=== PATIENT | female | born 1950 | race Caucasian/White ===

== ENCOUNTER 2018-10-18 13:45 | Inpatient (IN) | payer MEDICARE, OTHER ==
[~2018-10-18] VITALS: Ht 165.1 cm; Wt 89.5 kg
[2018-10-18] MEDS ORDERED: DIFLUCAN200 M1 PO (17:50)
[2018-10-18] MEDS ORDERED: ASPIRIN ADULT L81 M3 PO (17:51)
[2018-10-18] MEDS ORDERED: LASIX40 M1 PO (17:51)
[2018-10-18] MEDS ORDERED: NYSTATIN15 GM TP (17:51)
[2018-10-18] MEDS ORDERED: MASON NATURAL2000 IU PO (17:52)
[2018-10-18] MEDS ORDERED: CLOPIDOGREL PO (17:52)
[2018-10-18] MEDS ORDERED: CRESTOR20 MG PO (17:53)
[2018-10-18] MEDS ORDERED: GLIPIZIDE10 M2 PO (17:53)
[2018-10-18] MEDS ORDERED: MAG-OXIDE200 MG PO (17:53)
[2018-10-18] MEDS ORDERED: LOPRESSOR 225 MG/TAB PO (17:54)
[2018-10-18] MEDS ORDERED: AMBIEN CR12.5 MG PO (17:54)
[2018-10-18] MEDS ORDERED: VITAMIN B-121000 MC2 PO (17:55)
[2018-10-18] MEDS ORDERED: VITAMIN D50000 I2 PO (17:56)
[2018-10-18] MEDS ORDERED: GLUCOPHAGE1000 MG PO (17:56)
[2018-10-18] MEDS ORDERED: MYSOLINE50 M1 PO (17:57)
[2018-10-18] MEDS ORDERED: PEPCID 20MG TAB20 MG PO (17:57)
[2018-10-18] MEDS ORDERED: KLONOPIN 1MG1 MG PO (17:57)
[2018-10-18] MEDS ORDERED: COLACE100 M1 PO (17:58)
[2018-10-18] MEDS ORDERED: TYLENOL EXTRA500 M2 PO (17:58)
[2018-10-18] MEDS ORDERED: FERROUS GL325 MG/TA1 PO (17:59)
[2018-10-18] MEDS ORDERED: NEURONTIN300 MG/CAP (18:00)
[2018-10-18] MEDS ORDERED: ASCORBIC ACID PO (18:01)
[2018-10-18] MEDS ORDERED: NOVOLOG 100U100 U/ML SQ (18:01)
[2018-10-18] MEDS ORDERED: MIRALAX17 GM PO (18:01)
[2018-10-18] MEDS ORDERED: ULTRAM50 M1 PO (18:02)
[2018-10-18] MEDS ORDERED: MULTIVITAMIN1 SGL PO (18:02)
[2018-10-18] MEDS ORDERED: TRADJENTA5 MG PO (18:02)
[2018-10-18] MEDS ORDERED: AMLODIPINE BESY10 MG PO (18:03)
[2018-10-18 19:00] VITALS: BP 110/71
[2018-10-18 19:38] VITALS: BP 110/71
[2018-10-19 06:27] VITALS: BP 112/62
[2018-10-19 18:10] VITALS: BP 148/81
[2018-10-20 06:23] VITALS: BP 175/68
[2018-10-20 18:35] VITALS: BP 165/80
[2018-10-21 06:23] VITALS: BP 162/73
[2018-10-21 06:55] LABS: EOS # 0.3 (0.04-0.40); EOS % 3.4 % (1.0-5.0); HEMATOCRIT 31.5 % (37.0-47.0); LYMPH# 2.3 (1.50-4.00); MEAN CELL VOLUME 97 fl (78-100); MEAN CORPUSCULAR HEMOGLOBIN 31 pg (27-31); MEAN CORPUSCULAR HGB CONC 32 g/dL (33-37); MEAN PLATELET VOLUME 8.2 fl (7.4-10.4); MONO # 0.7 (0.20-0.80); NEU # 5.1 (1.40-6.50); RED BLOOD COUNT 3.26 M/mm3 (4.10-5.30); RED CELL DISTRIBUTION WIDTH 14.4 % (11.5-14.5); WHITE BLOOD COUNT 8.4 K/mm3 (4.8-10.8)
[2018-10-21 06:57] LABS: PLATELET COUNT 546 K/mm3 (130-400)
[2018-10-21 07:23] LABS: CALCIUM 8.5 mg/dL (8.4-10.2); POTASSIUM 3.9 mmol/L (3.6-5.0); TOTAL BILIRUBIN 0.4 mg/dL (0.2-1.3); TOTAL PROTEIN 6.1 g/dL (6.3-8.2)
[2018-10-21 14:38] LABS: C-REACTIVE PROTEIN XXX
[2018-10-21 19:33] VITALS: BP 141/43
[2018-10-22 06:26] VITALS: BP 167/73
[2018-10-22 18:35] VITALS: BP 155/74
[2018-10-22 23:55] LABS: URINE APPEARANCE HAZY; URINE BILIRUBIN NEGATIVE (NEGATIVE); URINE BLOOD TRACE (NEGATIVE); URINE COLOR YELLOW; URINE GLUCOSE NEGATIVE (NEGATIVE); URINE KETONE NEGATIVE (NEGATIVE); URINE LEUKOCYTE ESTERASE TRACE (NEGATIVE); URINE NITRATE NEGATIVE (NEGATIVE); URINE PROTEIN(semi-quant) TRACE mg/dL (NEGATIVE); URINE UROBILINOGEN NORMAL (NORMAL)
[2018-10-23 06:16] VITALS: BP 154/72
[2018-10-23 18:23] VITALS: BP 165/93
[2018-10-24 06:18] VITALS: BP 144/95
[2018-10-24 18:34] VITALS: BP 135/88
[2018-10-25 06:20] VITALS: BP 133/65
[2018-10-25 18:33] VITALS: BP 153/72
[2018-10-26 06:20] VITALS: BP 148/69
[2018-10-26 18:37] VITALS: BP 130/69
[2018-10-27 06:15] VITALS: BP 139/64
[2018-10-27 18:00] VITALS: BP 157/83
[2018-10-28 06:21] VITALS: BP 147/75
[2018-10-28 06:49] LABS: BASO # 0.1 (0.02-0.10); EOS # 0.2 (0.04-0.40); EOS % 2.3 % (1.0-5.0); HEMATOCRIT 32.1 % (37.0-47.0); HEMOGLOBIN 10.1 g/dL (12.5-16.0); LYMPH# 2.2 (1.50-4.00); MEAN CELL VOLUME 97 fl (78-100); MEAN CORPUSCULAR HEMOGLOBIN 31 pg (27-31); MEAN CORPUSCULAR HGB CONC 32 g/dL (33-37); MEAN PLATELET VOLUME 8.3 fl (7.4-10.4); MONO # 0.9 (0.20-0.80); PLATELET COUNT 441 K/mm3 (130-400); RED BLOOD COUNT 3.31 M/mm3 (4.10-5.30); RED CELL DISTRIBUTION WIDTH 14.4 % (11.5-14.5); WHITE BLOOD COUNT 8.4 K/mm3 (4.8-10.8)
[2018-10-28 07:10] LABS: ALBUMIN 3.1 g/dL (3.5-5.0); TOTAL BILIRUBIN 0.4 mg/dL (0.2-1.3); TOTAL PROTEIN 6.3 g/dL (6.3-8.2)
[2018-10-28 13:30] LABS: C-REACTIVE PROTEIN XXX
[2018-10-28 18:33] VITALS: BP 118/61
[2018-10-29 06:18] VITALS: BP 133/80
[2018-10-29 18:57] VITALS: BP 148/64
[2018-10-30 06:30] VITALS: BP 152/70
[2018-10-30 18:45] VITALS: BP 156/81
[2018-10-31 06:18] VITALS: BP 149/69
[2018-10-31 18:30] VITALS: BP 151/83
[2018-11-01 06:22] VITALS: BP 164/79
[2018-11-01 18:47] VITALS: BP 134/63
[2018-11-02 06:24] VITALS: BP 143/66
[2018-11-02 17:54] VITALS: BP 153/85
[2018-11-03 06:29] VITALS: BP 142/71
[2018-11-03 18:48] VITALS: BP 146/78
[2018-11-04 06:18] VITALS: BP 154/76
[2018-11-04 07:50] LABS: CALCIUM 9.7 mg/dL (8.4-10.2); POTASSIUM 4.6 mmol/L (3.6-5.0); TOTAL BILIRUBIN 0.3 mg/dL (0.2-1.3); TOTAL PROTEIN 6.2 g/dL (6.3-8.2)
[2018-11-04 08:20] LABS: HEMATOCRIT 30.8 % (37.0-47.0); HEMOGLOBIN 9.8 g/dL (12.5-16.0); MEAN CELL VOLUME 97 fl (78-100); MEAN CORPUSCULAR HEMOGLOBIN 31 pg (27-31); MEAN CORPUSCULAR HGB CONC 32 g/dL (33-37); MEAN PLATELET VOLUME 8.7 fl (7.4-10.4); PLATELET COUNT 357 K/mm3 (130-400); RED BLOOD COUNT 3.18 M/mm3 (4.10-5.30); RED CELL DISTRIBUTION WIDTH 14.7 % (11.5-14.5); WHITE BLOOD COUNT 6.7 K/mm3 (4.8-10.8)
[2018-11-04 09:10] LABS: LYMPHOCYTE 40 % (20-51); MONOCYTE 10 % (3-10); NEUTROPHILS 45 % (42-75)
[2018-11-04 18:39] VITALS: BP 166/78
[2018-11-05 06:25] VITALS: BP 143/55
[2018-11-05 18:55] VITALS: BP 117/64
[2018-11-06 06:27] VITALS: BP 143/74
[2018-11-06 18:00] VITALS: BP 131/70
[2018-11-07 06:33] VITALS: BP 170/71
[2018-11-07 18:00] VITALS: BP 155/80
[2018-11-08 06:32] VITALS: BP 161/53
[2018-11-08 18:38] VITALS: BP 158/71
[2018-11-09 06:21] VITALS: BP 160/72
[2018-11-09 18:27] VITALS: BP 139/73
[2018-11-10 06:25] VITALS: BP 166/75
[2018-11-10 18:32] VITALS: BP 158/98
[2018-11-11 06:09] VITALS: BP 170/80
[2018-11-11 17:54] VITALS: BP 143/69
[2018-11-12 06:22] VITALS: BP 164/73
[2018-11-12 18:00] VITALS: BP 157/92
[2018-11-13 06:15] VITALS: BP 162/57
[2018-11-13 18:28] VITALS: BP 165/80
[2018-11-14 06:08] VITALS: BP 161/67
[2018-11-14 18:09] VITALS: BP 142/70
[2018-11-15 06:37] VITALS: BP 160/76
[2018-11-15 18:00] VITALS: BP 162/69
[2018-11-16 06:37] VITALS: BP 151/55
[2018-11-16 18:43] VITALS: BP 154/78
[2018-11-17 06:23] VITALS: BP 168/91
[2018-11-17 18:06] VITALS: BP 151/75
[2018-11-18 06:19] VITALS: BP 142/67
[2018-11-18 07:37] LABS: HEMATOCRIT 33.2 % (37.0-47.0); HEMOGLOBIN 10.7 g/dL (12.5-16.0); MEAN CELL VOLUME 97 fl (78-100); MEAN CORPUSCULAR HEMOGLOBIN 31 pg (27-31); MEAN CORPUSCULAR HGB CONC 32 g/dL (33-37); MEAN PLATELET VOLUME 8.9 fl (7.4-10.4); PLATELET COUNT 346 K/mm3 (130-400); RED BLOOD COUNT 3.44 M/mm3 (4.10-5.30); RED CELL DISTRIBUTION WIDTH 14.9 % (11.5-14.5); WHITE BLOOD COUNT 8.9 K/mm3 (4.8-10.8)
[2018-11-18 07:43] LABS: ALBUMIN 3.6 g/dL (3.5-5.0); CALCIUM 9.9 mg/dL (8.4-10.2); POTASSIUM 4.3 mmol/L (3.6-5.0); TOTAL BILIRUBIN 0.3 mg/dL (0.2-1.3); TOTAL PROTEIN 6.9 g/dL (6.3-8.2)
[2018-11-18 08:51] LABS: LYMPHOCYTE 40 % (20-51); MONOCYTE 12 % (3-10); NEUTROPHILS 45 % (42-75)
[2018-11-18 08:55] LABS: ERYTHROCYTE SEDIMENTATION RATE 67 mm/hr (0-30)
[2018-11-18 18:10] VITALS: BP 175/93
[2018-11-19 06:37] VITALS: BP 146/70
[2018-11-19 18:15] VITALS: BP 183/81
[2018-11-20 06:10] VITALS: BP 109/91
[2018-11-20 18:09] VITALS: BP 154/94
[2018-11-21 06:25] VITALS: BP 158/65
[2018-11-21 14:51] LABS: HEMATOCRIT 32.6 % (37.0-47.0); HEMOGLOBIN 10.5 g/dL (12.5-16.0); MEAN CELL VOLUME 97 fl (78-100); MEAN CORPUSCULAR HEMOGLOBIN 31 pg (27-31); MEAN CORPUSCULAR HGB CONC 32 g/dL (33-37); MEAN PLATELET VOLUME 8.6 fl (7.4-10.4); PLATELET COUNT 289 K/mm3 (130-400); RED BLOOD COUNT 3.36 M/mm3 (4.10-5.30); RED CELL DISTRIBUTION WIDTH 14.8 % (11.5-14.5); WHITE BLOOD COUNT 7.8 K/mm3 (4.8-10.8)
[2018-11-21 14:56] LABS: CALCIUM 10.2 mg/dL (8.4-10.2); POTASSIUM 4.4 mmol/L (3.6-5.0)
[2018-11-21 15:24] LABS: LYMPHOCYTE 24 % (20-51); MONOCYTE 10 % (3-10); NEUTROPHILS 62 % (42-75)
[2018-11-21 18:04] VITALS: BP 160/64
[2018-11-22 06:27] VITALS: BP 142/75
[2018-11-22 18:43] VITALS: BP 146/67
[2018-11-23 06:26] VITALS: BP 139/57
[2018-11-23 18:14] VITALS: BP 147/77
[2018-11-24 06:23] VITALS: BP 139/66
[2018-11-24 18:21] VITALS: BP 137/76
[2018-11-25 06:07] VITALS: BP 157/82
[2018-11-25 18:00] VITALS: BP 146/105
[2018-11-25 21:13] VITALS: BP 134/52
[2018-11-26 06:20] VITALS: BP 132/117
[2018-11-26 06:30] VITALS: BP 134/59
[2018-11-26 18:33] VITALS: BP 158/90
[2018-11-27 06:27] VITALS: BP 129/64
[2018-11-27 18:22] VITALS: BP 149/71
[2018-11-28 06:31] VITALS: BP 141/62
[2018-11-28 18:08] VITALS: BP 96/80
[2018-11-28 18:18] VITALS: BP 106/57
[2018-11-29 06:11] VITALS: BP 139/69
[2018-11-29 18:25] VITALS: BP 130/52
[2018-11-30 06:34] VITALS: BP 135/58
[2018-11-30 18:29] VITALS: BP 129/75
[2018-12-01 06:26] VITALS: BP 135/66
[2018-12-01 18:10] VITALS: BP 151/81
[2018-12-02 06:25] VITALS: BP 138/65
[2018-12-02 18:20] VITALS: BP 128/56
[2018-12-03 06:17] VITALS: BP 147/72
[2018-12-03] MEDS ORDERED: COZAAR 50MG50 MG/TAB PO (18:54)
[2018-12-03] MEDS ORDERED: NORCO 325 MG-7.1 TA1 PO (18:55)
[2018-12-03] MEDS ORDERED: ESCITALOPRAM10 MG PO (18:56)
[2018-12-03] MEDS ORDERED: PROBIOTICA100 MILLIO PO (18:56)
[2018-12-03 18:58] VITALS: BP 96/87
[2018-12-03] MEDS ORDERED: ZINC SO4 PO (19:00)
[2018-12-03] MEDS ORDERED: PROPRANOLOL HCL40 M2 PO (19:00)
[2018-12-04 04:30] VITALS: BP 137/77
== END 2018-12-04 05:10 | disposition short-term general hospital (02) | DRG 947 ==
LOC: MED/SURG 13:45
PROVIDERS: Family Medicine; Internal Medicine; Physician Assistant; ADMIT Nurse Practitioner Primary Care
DX: R53.81 Other malaise (principal); A41.9 Sepsis, unspecified organism; L03.116 Cellulitis of left lower limb; L03.115 Cellulitis of right lower limb; E11.621 Type 2 diabetes mellitus with foot ulcer; T87.81 Dehiscence of amputation stump; E11.622 Type 2 diabetes mellitus with other skin ulcer; L97.519 Non-pressure chronic ulcer of other part of right foot with unspecified severity; M79.3 Panniculitis, unspecified; I12.9 Hypertensive chronic kidney disease with stage 1 through stage 4 chronic kidney disease, or unspecified chronic kidney disease; E11.22 Type 2 diabetes mellitus with diabetic chronic kidney disease; N18.9 Chronic kidney disease, unspecified; Z89.411 Acquired absence of right great toe; D64.9 Anemia, unspecified; I73.9 Peripheral vascular disease, unspecified; I87.2 Venous insufficiency (chronic) (peripheral); Z91.19 Patient's noncompliance with other medical treatment and regimen; F32.9 Major depressive disorder, single episode, unspecified
CPT/HCPCS: A6550; J0692; J1644; J1650; J1815; J2270; J2997; J3370; J7050

== ENCOUNTER 2018-12-06 14:46 | Inpatient (IN) | payer MEDICARE, OTHER ==
[~2018-12-06] VITALS: Ht 165.1 cm; Wt 86.8 kg
[~2018-12-06 14:46] MED LIST: AMBIEN CR12.5 MG PO; AMLODIPINE BESY10 MG PO; ASCORBIC ACID PO; ASPIRIN ADULT L81 M3 PO; CLOPIDOGREL PO; COLACE100 M1 PO; COZAAR 50MG50 MG/TAB PO; CRESTOR20 MG PO; DIFLUCAN200 M1 PO; ESCITALOPRAM10 MG PO; FERROUS GL325 MG/TA1 PO; GLIPIZIDE10 M2 PO; GLUCOPHAGE1000 MG PO; KLONOPIN 1MG1 MG PO; LASIX40 M1 PO; LOPRESSOR 225 MG/TAB PO; MAG-OXIDE200 MG PO; MASON NATURAL2000 IU PO; MIRALAX17 GM PO; MULTIVITAMIN1 SGL PO; MYSOLINE50 M1 PO; NEURONTIN300 MG/CAP; NORCO 325 MG-7.1 TA1 PO; NOVOLOG 100U100 U/ML SQ; NYSTATIN15 GM TP; PEPCID 20MG TAB20 MG PO; PROBIOTICA100 MILLIO PO; PROPRANOLOL HCL40 M2 PO; TRADJENTA5 MG PO; TYLENOL EXTRA500 M2 PO; ULTRAM50 M1 PO; VITAMIN B-121000 MC2 PO; VITAMIN D50000 I2 PO; ZINC SO4 PO
[2018-12-06 16:29] VITALS: BP 145/62
[2018-12-06] MEDS ORDERED: PERCOCET 325 MG1 TA2 PO (16:46)
[2018-12-06] MEDS ORDERED: ASPIRIN 32325 MG/TAB PO (16:46)
[2018-12-06] MEDS ORDERED: KLONOPIN 1MG1 MG PO (16:49)
[2018-12-06] MEDS ORDERED: NOVOLOG 100U100 U/ML SQ ×2 (16:50→16:51)
[2018-12-06] MEDS ORDERED: MIRALAX17 GM PO (16:52)
[2018-12-06] MEDS ORDERED: GABAPENTIN TAB600 MG PO (16:53)
[2018-12-06] MEDS ORDERED: HCTZ 25MG25 MG PO (16:54)
[2018-12-06] MEDS ORDERED: PROPRANOLOL HCL40 M2 PO (16:55)
[2018-12-06] MEDS ORDERED: MEGESTROL AC40 MG/ML PO (16:56)
[2018-12-06] MEDS ORDERED: ACIDOPHILUS1 EAC2 PO (16:59)
[2018-12-06] MEDS ORDERED: GLUCOTROL 5M5 MG/TAB PO (17:00)
[2018-12-06] MEDS ORDERED: VENELEX OINTMEN60 GM TP (17:01)
[2018-12-06] MEDS ORDERED: LEXAPRO 10MG10 MG PO (17:01)
[2018-12-06] MEDS ORDERED: JANUVIA 100MG100 MG (17:02)
[2018-12-06] MEDS ORDERED: ATORVASTATIN CA40 MG PO (17:03)
[2018-12-06] MEDS ORDERED: GABAPENTIN100 MG PO (17:03)
[2018-12-06] MEDS ORDERED: MILK OF MA400 MG/51 PO (17:04)
[2018-12-06 18:10] LABS: HEMATOCRIT 30.8 % (37.0-47.0); MEAN CELL VOLUME 95 fl (78-100); MEAN CORPUSCULAR HEMOGLOBIN 31 pg (27-31); MEAN CORPUSCULAR HGB CONC 33 g/dL (33-37); MEAN PLATELET VOLUME 9.2 fl (7.4-10.4); PLATELET COUNT 403 K/mm3 (130-400); RED BLOOD COUNT 3.23 M/mm3 (4.10-5.30)
[2018-12-06 18:26] VITALS: BP 138/87
[2018-12-06 18:59] VITALS: BP 138/87
[2018-12-06 20:39] LABS: LYMPHOCYTE 26 % (20-51); MONOCYTE 9 % (3-10); NEUTROPHILS 64 % (42-75)
[2018-12-06 21:18] VITALS: BP 136/45
[2018-12-06 23:24] LABS: URINE APPEARANCE HAZY; URINE BILIRUBIN NEGATIVE (NEGATIVE); URINE BLOOD TRACE (NEGATIVE); URINE COLOR YELLOW; URINE GLUCOSE NEGATIVE (NEGATIVE); URINE KETONE NEGATIVE (NEGATIVE); URINE NITRATE NEGATIVE (NEGATIVE); URINE PROTEIN(semi-quant) 2+ mg/dL (NEGATIVE); URINE UROBILINOGEN NORMAL (NORMAL)
[2018-12-06 23:25] LABS: URINE LEUKOCYTE ESTERASE NEGATIVE (NEGATIVE)
[2018-12-07 06:45] VITALS: BP 146/64
[2018-12-07 09:06] VITALS: BP 152/91
[2018-12-07 18:18] VITALS: BP 108/44
[2018-12-08 06:31] VITALS: BP 134/49
[2018-12-08 18:39] VITALS: BP 131/52
[2018-12-09 06:07] VITALS: BP 129/58
[2018-12-09 18:55] VITALS: BP 130/67
[2018-12-10 06:28] VITALS: BP 123/54
[2018-12-10 11:37] LABS: URINE APPEARANCE CLEAR; URINE BILIRUBIN NEGATIVE (NEGATIVE); URINE BLOOD NEGATIVE (NEGATIVE); URINE COLOR YELLOW; URINE GLUCOSE NEGATIVE (NEGATIVE); URINE KETONE SMALL (NEGATIVE); URINE LEUKOCYTE ESTERASE NEGATIVE (NEGATIVE); URINE MUCUS PRESENT (NOT PRESENT); URINE NITRATE NEGATIVE (NEGATIVE); URINE PROTEIN(semi-quant) NEGATIVE (NEGATIVE); URINE UROBILINOGEN NORMAL (NORMAL); URINE WBC 0-1 /hpf (0-3)
[2018-12-10 21:11] VITALS: BP 102/41
[2018-12-11 06:26] VITALS: BP 138/45
[2018-12-11 10:02] LABS: CALCIUM 8.9 mg/dL (8.4-10.2); POTASSIUM 3.4 mmol/L (3.6-5.0)
[2018-12-11 10:14] LABS: HEMATOCRIT 28.6 % (37.0-47.0); HEMOGLOBIN 9.1 g/dL (12.5-16.0); MEAN CELL VOLUME 96 fl (78-100); MEAN CORPUSCULAR HEMOGLOBIN 31 pg (27-31); MEAN CORPUSCULAR HGB CONC 32 g/dL (33-37); MEAN PLATELET VOLUME 8.9 fl (7.4-10.4); RED BLOOD COUNT 2.97 M/mm3 (4.10-5.30); RED CELL DISTRIBUTION WIDTH 13.4 % (11.5-14.5); WHITE BLOOD COUNT 10.3 K/mm3 (4.8-10.8)
[2018-12-11 10:18] LABS: PLATELET COUNT 518 K/mm3 (130-400)
[2018-12-11 10:25] LABS: NEUTROPHILS 62 % (42-75)
[2018-12-11 10:26] LABS: LYMPHOCYTE 23 % (20-51); MONOCYTE 14 % (3-10)
[2018-12-11 18:29] VITALS: BP 108/44
[2018-12-12 06:20] VITALS: BP 129/54
[2018-12-12 18:37] VITALS: BP 141/50
[2018-12-13 06:10] VITALS: BP 137/73
[2018-12-13 15:08] VITALS: BP 131/61
[2018-12-13 17:27] VITALS: BP 105/74
[2018-12-14 06:35] VITALS: BP 147/76
[2018-12-14 17:24] VITALS: BP 120/67
[2018-12-15 06:35] VITALS: BP 133/74
[2018-12-15 18:34] VITALS: BP 121/68
[2018-12-16 06:34] VITALS: BP 141/61
[2018-12-16 07:28] LABS: BASO # 0.1 (0.02-0.10); EOS # 0.3 (0.04-0.40); EOS % 2.2 % (1.0-5.0); HEMATOCRIT 31.8 % (37.0-47.0); LYMPH# 2.3 (1.50-4.00); MEAN CELL VOLUME 96 fl (78-100); MEAN CORPUSCULAR HEMOGLOBIN 30 pg (27-31); MEAN CORPUSCULAR HGB CONC 31 g/dL (33-37); MEAN PLATELET VOLUME 8.6 fl (7.4-10.4); MONO # 1.3 (0.20-0.80); NEU # 8.2 (1.40-6.50); RED CELL DISTRIBUTION WIDTH 13.6 % (11.5-14.5); WHITE BLOOD COUNT 12.2 K/mm3 (4.8-10.8)
[2018-12-16 07:41] LABS: CALCIUM 9.6 mg/dL (8.4-10.2)
[2018-12-16 08:04] LABS: PLATELET COUNT 567 K/mm3 (130-400)
[2018-12-16 18:26] VITALS: BP 130/72
[2018-12-17 06:22] VITALS: BP 136/83
[2018-12-17 18:42] VITALS: BP 106/74
[2018-12-18 06:20] VITALS: BP 120/51
[2018-12-18 11:55] LABS: EOS # 0.3 (0.04-0.40); EOS % 1.8 % (1.0-5.0); HEMATOCRIT 31.3 % (37.0-47.0); HEMOGLOBIN 9.9 g/dL (12.5-16.0); LYMPH# 2.9 (1.50-4.00); MEAN CELL VOLUME 96 fl (78-100); MEAN CORPUSCULAR HEMOGLOBIN 30 pg (27-31); MEAN CORPUSCULAR HGB CONC 32 g/dL (33-37); MEAN PLATELET VOLUME 8.6 fl (7.4-10.4); MONO # 1.3 (0.20-0.80); RED BLOOD COUNT 3.27 M/mm3 (4.10-5.30); RED CELL DISTRIBUTION WIDTH 13.7 % (11.5-14.5); WHITE BLOOD COUNT 14.9 K/mm3 (4.8-10.8)
[2018-12-18 11:59] LABS: CALCIUM 10.3 mg/dL (8.4-10.2); NEU # 10.4 (1.40-6.50); PLATELET COUNT 680 K/mm3 (130-400); POTASSIUM 4.1 mmol/L (3.6-5.0)
[2018-12-18 15:59] LABS: URINE APPEARANCE HAZY; URINE COLOR YELLOW
[2018-12-18 16:00] LABS: URINE BILIRUBIN NEGATIVE (NEGATIVE); URINE BLOOD 50 ery/uL (NEGATIVE); URINE GLUCOSE NEGATIVE (NEGATIVE); URINE KETONE NEGATIVE (NEGATIVE); URINE LEUKOCYTE ESTERASE 2+ (NEGATIVE); URINE NITRATE POSITIVE (NEGATIVE); URINE PROTEIN(semi-quant) TRACE mg/dL (NEGATIVE); URINE UROBILINOGEN NORMAL (NORMAL)
[2018-12-18 16:01] LABS: URINE WBC >50 /hpf (0-3)
[2018-12-18 19:16] VITALS: BP 141/68
[2018-12-19 06:18] VITALS: BP 143/61
[2018-12-19 07:15] LABS: EOS # 0.2 (0.04-0.40); EOS % 1.6 % (1.0-5.0); HEMATOCRIT 27.7 % (37.0-47.0); HEMOGLOBIN 8.7 g/dL (12.5-16.0); LYMPH# 2.2 (1.50-4.00); MEAN CELL VOLUME 97 fl (78-100); MEAN CORPUSCULAR HEMOGLOBIN 30 pg (27-31); MEAN CORPUSCULAR HGB CONC 31 g/dL (33-37); MEAN PLATELET VOLUME 8.5 fl (7.4-10.4); NEU # 6.3 (1.40-6.50); RED BLOOD COUNT 2.87 M/mm3 (4.10-5.30); RED CELL DISTRIBUTION WIDTH 13.7 % (11.5-14.5); WHITE BLOOD COUNT 9.8 K/mm3 (4.8-10.8)
[2018-12-19 07:16] LABS: PLATELET COUNT 616 K/mm3 (130-400)
[2018-12-19 18:33] VITALS: BP 128/90
[2018-12-20 17:53] VITALS: BP 143/77
[2018-12-21 03:55] VITALS: BP 130/87
[2018-12-21 06:14] VITALS: BP 141/59
[2018-12-21 17:30] LABS: BASO # 0.1 (0.02-0.10); EOS # 0.1 (0.04-0.40); HEMATOCRIT 29.9 % (37.0-47.0); HEMOGLOBIN 9.5 g/dL (12.5-16.0); LYMPH# 3.3 (1.50-4.00); MEAN CELL VOLUME 97 fl (78-100); MEAN CORPUSCULAR HEMOGLOBIN 31 pg (27-31); MEAN CORPUSCULAR HGB CONC 32 g/dL (33-37); MEAN PLATELET VOLUME 8.2 fl (7.4-10.4); MONO # 1.4 (0.20-0.80); NEU # 7.2 (1.40-6.50); RED BLOOD COUNT 3.09 M/mm3 (4.10-5.30); WHITE BLOOD COUNT 12.1 K/mm3 (4.8-10.8)
[2018-12-21 17:33] LABS: PLATELET COUNT 649 K/mm3 (130-400)
[2018-12-21 18:11] LABS: ALBUMIN 3.9 g/dL (3.5-5.0); CALCIUM 10.2 mg/dL (8.4-10.2); POTASSIUM 3.5 mmol/L (3.6-5.0); TOTAL BILIRUBIN 0.4 mg/dL (0.2-1.3); TOTAL PROTEIN 7.7 g/dL (6.3-8.2)
[2018-12-21 19:17] VITALS: BP 146/73
[2018-12-22 06:39] VITALS: BP 164/79
[2018-12-22 18:00] VITALS: BP 143/77
[2018-12-23 05:46] VITALS: BP 158/75
[2018-12-23 07:40] LABS: BASO # 0.1 (0.02-0.10); EOS # 0.3 (0.04-0.40); EOS % 2.2 % (1.0-5.0); HEMATOCRIT 30.2 % (37.0-47.0); HEMOGLOBIN 9.5 g/dL (12.5-16.0); LYMPH# 2.7 (1.50-4.00); MEAN CELL VOLUME 97 fl (78-100); MEAN CORPUSCULAR HEMOGLOBIN 31 pg (27-31); MEAN CORPUSCULAR HGB CONC 32 g/dL (33-37); MEAN PLATELET VOLUME 8.4 fl (7.4-10.4); MONO # 1.4 (0.20-0.80); NEU # 7.3 (1.40-6.50); RED BLOOD COUNT 3.11 M/mm3 (4.10-5.30); RED CELL DISTRIBUTION WIDTH 13.9 % (11.5-14.5); WHITE BLOOD COUNT 11.7 K/mm3 (4.8-10.8)
[2018-12-23 07:49] LABS: PLATELET COUNT 635 K/mm3 (130-400)
[2018-12-23 09:28] LABS: CALCIUM 10.3 mg/dL (8.4-10.2); POTASSIUM 3.5 mmol/L (3.6-5.0)
[2018-12-23 18:12] VITALS: BP 135/64
[2018-12-24 06:18] VITALS: BP 145/69
[2018-12-24 11:43] VITALS: BP 124/72
[2018-12-24 18:22] VITALS: BP 127/85
[2018-12-24 19:05] LABS: PH-URINE 5.5 (5.0 - 8.0); URINE APPEARANCE CLEAR; URINE COLOR YELLOW; URINE GLUCOSE NEGATIVE (NEGATIVE); URINE PROTEIN(semi-quant) 1+ mg/dL (NEGATIVE)
[2018-12-24 19:06] LABS: URINE BILIRUBIN NEGATIVE (NEGATIVE); URINE BLOOD TRACE (NEGATIVE); URINE KETONE NEGATIVE (NEGATIVE); URINE LEUKOCYTE ESTERASE 1+ (NEGATIVE); URINE NITRATE NEGATIVE (NEGATIVE); URINE UROBILINOGEN NORMAL (NORMAL)
[2018-12-25 06:04] VITALS: BP 137/70
[2018-12-25 17:55] LABS: URINE APPEARANCE CLEAR; URINE BILIRUBIN NEGATIVE (NEGATIVE); URINE COLOR YELLOW; URINE GLUCOSE NEGATIVE (NEGATIVE); URINE KETONE NEGATIVE (NEGATIVE); URINE NITRATE NEGATIVE (NEGATIVE); URINE PROTEIN(semi-quant) TRACE mg/dL (NEGATIVE); URINE UROBILINOGEN NORMAL (NORMAL)
[2018-12-25 17:56] LABS: URINE BLOOD TRACE (NEGATIVE); URINE LEUKOCYTE ESTERASE TRACE (NEGATIVE)
[2018-12-25 18:20] VITALS: BP 97/53
[2018-12-26 06:20] VITALS: BP 151/81
[2018-12-26] MEDS ORDERED: ROXICODONE5 M1 PO (12:16)
[2018-12-26] MEDS ORDERED: EFFEXOR XR150 M1 PO (12:17)
[2018-12-26] MEDS ORDERED: NYSTATIN15 G1 TP (12:21)
[2018-12-26] MEDS ORDERED: ANUSOL HC CREAM30 GM TOP (12:22)
[2018-12-26] MEDS ORDERED: ZINC OXIDE30 GM TOP (12:23)
[2018-12-26] MEDS ORDERED: VITAMIN C500 MG PO (12:24)
[2018-12-26 13:38] VITALS: BP 151/81
== END 2018-12-26 14:37 | DRG 560 ==
LOC: MED/SURG 14:46
PROVIDERS: Family Medicine; Nurse Practitioner; Physician Assistant; ADMIT Nurse Practitioner Primary Care
DX: Z47.81 Encounter for orthopedic aftercare following surgical amputation (principal); N39.0 Urinary tract infection, site not specified; Z89.511 Acquired absence of right leg below knee; I12.9 Hypertensive chronic kidney disease with stage 1 through stage 4 chronic kidney disease, or unspecified chronic kidney disease; E11.22 Type 2 diabetes mellitus with diabetic chronic kidney disease; N18.9 Chronic kidney disease, unspecified; E11.51 Type 2 diabetes mellitus with diabetic peripheral angiopathy without gangrene; E11.42 Type 2 diabetes mellitus with diabetic polyneuropathy; B96.5 Pseudomonas (aeruginosa) (mallei) (pseudomallei) as the cause of diseases classified elsewhere; N39.3 Stress incontinence (female) (male); G25.0 Essential tremor; F32.9 Major depressive disorder, single episode, unspecified; B95.7 Other staphylococcus as the cause of diseases classified elsewhere; L89.899 Pressure ulcer of other site, unspecified stage; L89.159 Pressure ulcer of sacral region, unspecified stage; L08.9 Local infection of the skin and subcutaneous tissue, unspecified; L89.40 Pressure ulcer of contiguous site of back, buttock and hip, unspecified stage
CPT/HCPCS: A4216; J0696; J1815; J3370; J7030; J7050; L1830